=== PATIENT | male | born 1955 | race Caucasian/White ===

== ENCOUNTER 2020-11-15 20:18 | Emergency (ER) | payer OTHER, SELFPAY ==
[2020-11-15 20:18] VITALS: BP 144/91; PULSE 107; RESP 16; TEMP 36.4; O2SAT 99; BMI 26.8
--- NOTE | 2020-11-15 20:36 | ED.RN ---
NO OLD EKG
--- NOTE | 2020-11-15 20:54 | EKG12_ITS ---
Test Reason : PALPATATIONS Blood Pressure : / mmHG Vent. Rate : 095 BPM Atrial Rate : 095 BPM P-R Int : 182 ms QRS Dur : 098 ms QT Int : 336 ms P-R-T Axes : 048 043 055 degrees QTc Int : 422 ms Sinus rhythm with Premature atrial complexes Otherwise normal ECG Confirmed by MANI MARTIN, YENNIFER ([id number]), editorial project manager NATHAN SANCHEZ ([id number]) on 11/18/2020 12:17:57 PM Referred By: TAHIR Confirmed By:ADAM SINGLETON MD
--- NOTE | 2020-11-15 21:10 | ED.VISSUMM ---
- ER Visit Summary Date of Service: 11/15/20 Chief Complaint: Palpitations History of Present Illness: The patient is a 65 M presenting with palpitations. Patient states this started just prior to arrival. He states he had approximately a half hour of irregular heart rhythm. He states he now is feeling PVCs every 10 beats or so. He feels much improved. He denies chest pain or shortness of breath. Denies dizziness or syncope. Denies fever or cough. He did travel from [place] today by car but stopped frequently. He does not drink any caffeine. He takes no medications. He is not a smoker. No family history of early heart disease. Physical Examination: Vitals are stable. Patient is afebrile. Alert no acute distress. HEENT exam is unremarkable. Neck is supple. Lungs are clear and equal bilaterally. Heart is regular rate and rhythm. Abdomen is soft nontender nondistended. Extremities are unremarkable. Skin is warm and dry. No focal neurologic deficit. Remainder of exam is unremarkable. Emergency Department Course and Treatment: EKG is sinus rhythm rate of 95 with no acute ischemic changes. Normal x-ray examination of the chest. CBC unremarkable. D-dimer normal. Remainder of labs are pending. Patient will be signed out to the oncoming physician for re-evaluation. Disposition: pending Impression: Palpitations This note was generated with [employer] dictation software. It may contain incorrect words, spelling, and punctuation that were not noted in review of the chart prior to signing ED Disposition - Plan for ED Patient: Referrals: [facility] Doctor,Out of [NON-STAFF] -
--- NOTE | 2020-11-15 21:20 | RAD_ITS ---
STUDY: X-RAY CHEST REASON FOR EXAM: Male, 65 years old. Heart palpitations tonight TECHNIQUE: Single AP portable view of the chest. COMPARISON: None. FINDINGS: The lungs are clear and expanded. There is no demonstrated pleural abnormality. Normal size heart. Normal mediastinum and edgard. Normal visualized pulmonary arteries. Normal visualized aortic arch and descending thoracic aorta. Normal visualized thoracic spine. Normal visualized ribs, clavicles, and shoulders. There is no demonstrated abnormality of the visualized soft tissue structures of the upper abdomen. RAD/Chest 1 View (Portable) IMPRESSION: Normal x-ray examination of the chest. Electronically Signed: Luís Johnson MD at 21:56 EST , Service support ,
[2020-11-15 21:22] LABS: Absolute Lymphocyte Count 1.17 X10^3/uL (0.83-4.51); Absolute Neutrophil Count 3.3 X10^3/uL (2.0-7.7); Basophil# 0.04 X10^3/uL; Basophil% 0.8 % (0-1); Eosinophil# 0.13 X10^3/uL; Eosinophils% 2.6 % (0-5); Hematocrit 43.3 % (40-54); Hemoglobin 14.2 g/dL (13.0-16.5); Lymphocyte # 1.17 X10^3/ul (4.0); Lymphocyte % 23.3 % (19-41); Mean Corp Hgb Conc 32.8 g/dL (32-36); Mean Corpuscular Hgb 30.5 pg (27.0-32.0); Mean Corpuscular Volume 93.1 fL (80-94); Mean Platelet Vol. 10.5 fl (6.2-12.0); Monocyte# 0.36 X10^3/uL; Monocyte% 7.2 % (0-10); NRBC Flagged by Analyzer 0 % (0-5); Neutrophil # 3.31 X10^3/uL (2.7-7.7); Neutrophil % 65.9 % (47-70); Platelet Count 235 K/mm3 (150-450); RBC Distribution Width CV 12.1 % (11.6-14.6); RBC Distribution Width SD 41.9 fl (35.1-43.9); Red Blood Count 4.65 M/mm3 (4.6-6.2)
[2020-11-15] MEDS: 0.9% Normal Saline 1,000 ML 999 ML IV (21:31)
[2020-11-15 21:33] VITALS: BP 134/89; PULSE 101; RESP 18; O2SAT 97
[2020-11-15 21:39] LABS: D-Dimer Quantitative (DVT/PE) 0.35 FEU/ug/m (0.27-0.49)
[2020-11-15 22:05] VITALS: BP 129/84; PULSE 73; RESP 14; O2SAT 98
[2020-11-15 22:40] LABS: Anion Gap 6 (5-15); BUN 18 mg/dL (7-18); BUN/Creat Ratio 25.7 RATIO (10-20); Calcium,Total 8.6 mg/dL (8.5-10.1); Chloride 113 mmol/L (98-107); EST Glomerular Filtration Rate 120 mL/min (>60); Est Glom Filt Rate - Afr Amer 146 mL/min (>60); Estimated Creatinine Clearance 110.08 ml/min; Glucose 105 mg/dL (74-106); Potassium 3.5 mmol/L (3.5-5.1); Sodium Level 145 mmol/L (136-145)
--- NOTE | 2020-11-15 23:00 | ED.DCSUM_ITS ---
- ER Visit Summary Date of Service: 11/15/20 Chief Complaint: [] History of Present Illness: The patient is a 65 M [] Physical Examination: [] Test Results: [] Emergency Department Course and Treatment: [] Treatment Plan: [] Disposition: [] Impression: [] This note was generated with [employer] software. It may contain incorrect words, spelling, and punctuation that were not noted in review of the chart prior to signing ED Disposition - Plan for ED Patient: Instructions: ED Palpitations Referrals: [facility] Doctor,Out of [NON-STAFF] -
[2020-11-15 23:24] VITALS: BP 145/82; PULSE 73; RESP 15; O2SAT 97
== END 2020-11-15 23:25 | disposition home or self-care (01) ==
PROVIDERS: Emergency Provider Emergency Medicine
DX: R00.2 Palpitations (principal)
CPT/HCPCS: 71045; 80048; 84443; 84484; 85025; 85379; 93005; 96360; 96361; 99283; J7030; A4216